=== PATIENT | female | born 1995 | race American Indian/Alaskan Native ===

== ENCOUNTER 2016-06-13 12:25 | Emergency (ER) | payer SELFPAY ==
[2016-06-13] MEDS ORDERED: TYLENOL #3 PO ONE (18:31)
--- NOTE | 2016-06-13 18:40 | Emergency Department Report ---
- General Chief Complaint: Upper Respiratory Infection Stated Complaint: SOB/CHEST PAIN WHEN COUGHING Time Seen by Provider: 06/13/16 18:30 Source: patient Mode of arrival: Ambulatory Limitations: No Limitations - History of Present Illness Initial Comments: Patient with history of asthma and bronchitis complains of nonproductive-dry cough worse at night, chest tightness, sore throat 2 days. Reports runny nose, throat and chest hurts when she coughs. Denies spitting or coughing up blood, weakness, dizziness, N/V, vomiting or abdominal discomfort, ear ache or discomfort, symptoms. LMP 06/04/16 - Related Data Previous Rx's Medication Instructions Recorded Last Taken Type Hydrocortisone 2.5% [Hytone 2.5% 1 applicatio TP BID #30 gm 09/13/14 Unknown Rx CREAM] predniSONE [Deltasone] 20 mg PO BID #10 tab 09/13/14 Unknown Rx ALBUTEROL Inhaler [ProAir HFA 2 puff IH QID PRN #1 inhalation 06/13/16 Unknown Rx Inhaler] Azithromycin [Zithromax] 250 mg PO QDAY #6 tablet 06/13/16 Unknown Rx guaiFENesin/DEXTROMETHORPHAN 10 ml PO Q4HR PRN #118 ml 06/13/16 Unknown Rx [Diabetic Tussin Dm Max-Str Liq] Allergies Allergy/AdvReac Type Severity Reaction Status Date / Time No Known Allergies Allergy Verified 06/13/16 14:32 ED Review of Systems ROS: Stated complaint: SOB/CHEST PAIN WHEN COUGHING Other details as noted in HPI ED Past Medical Hx - Social History Smoking Status: Never Smoker Substance Use Type: None - Medications Home Medications: Home Medications Medication Instructions Recorded Confirmed Last Taken Type Hydrocortisone 2.5% [Hytone 2.5% 1 applicatio TP BID #30 gm 09/13/14 Unknown Rx CREAM] predniSONE [Deltasone] 20 mg PO BID #10 tab 09/13/14 Unknown Rx ALBUTEROL Inhaler [ProAir HFA 2 puff IH QID PRN #1 inhalation 06/13/16 Unknown Rx Inhaler] Azithromycin [Zithromax] 250 mg PO QDAY #6 tablet 06/13/16 Unknown Rx guaiFENesin/DEXTROMETHORPHAN 10 ml PO Q4HR PRN #118 ml 06/13/16 Unknown Rx [Diabetic Tussin Dm Max-Str Liq] ED Physical Exam - General Limitations: No Limitations General appearance: alert, in no apparent distress - Head Head exam: Present: atraumatic, normocephalic - Eye Eye exam: Present: normal appearance, PERRL, EOMI - ENT ENT exam: Present: normal exam, normal orophraynx, mucous membranes moist, TM's normal bilaterally, normal external ear exam - Neck Neck exam: Present: normal inspection, meningismus, full ROM. Absent: tenderness, lymphadenopathy - Respiratory Respiratory exam: Present: normal lung sounds bilaterally, wheezes (mild b/l). Absent: respiratory distress, rales, rhonchi, stridor, chest wall tenderness, accessory muscle use, decreased breath sounds, prolonged expiratory - Cardiovascular Cardiovascular Exam: Present: regular rate, normal rhythm - GI/Abdominal GI/Abdominal exam: Present: soft, normal bowel sounds. Absent: distended, tenderness, guarding, rebound, organomegaly - Extremities Exam Extremities exam: Present: normal inspection, full ROM, normal capillary refill. Absent: tenderness, pedal edema, joint swelling, calf tenderness - Back Exam Back exam: Present: normal inspection, full ROM. Absent: tenderness, CVA tenderness (R), CVA tenderness (L) - Neurological Exam Neurological exam: Present: alert, oriented X3, normal gait. Absent: motor sensory deficit, reflexes normal - Psychiatric Psychiatric exam: Present: normal affect, normal mood - Skin Skin exam: Present: warm, dry, intact, normal color. Absent: rash, cyanosis, diaphoretic, erythema, petechiae, pallor ED Course Vital Signs 06/13/16 14:26 Temperature 99.7 F H Pulse Rate 62 Respiratory 18 Rate Blood Pressure 118/83 O2 Sat by Pulse 99 Oximetry Critical care attestation.: If time is entered above; I have spent that time in minutes in the direct care of this critically ill patient, excluding procedure time. ED Disposition Clinical Impression: Asthma with bronchitis Disposition: DISCHARGED TO HOME OR SELFCARE Is pt being admited?: No Does the pt Need Aspirin: No Condition: Stable Instructions: Chronic Bronchitis (ED), Asthma (ED) Additional Instructions: Follow-up instructions for care. His medications as prescribed. Follow-up with your PCP, Dr. Adhikari, for follow up. Return to ED for new or worsening condition. Prescriptions: guaiFENesin/DEXTROMETHORPHAN [Diabetic Tussin Dm Max-Str Liq] 10 ml PO Q4HR PRN #118 ml PRN Reason: Cough ALBUTEROL Inhaler [ProAir HFA Inhaler] 2 puff IH QID PRN #1 inhalation PRN Reason: Shortness Of Breath Azithromycin [Zithromax] 250 mg PO QDAY #6 tablet Referrals: PRIMARY CARE, [Primary Care Provider] - 24 Hours
[2016-06-13] MEDS ORDERED: DUONEB 0.5 MG-3 MG/3 ML SOLN IH ONE (18:41)
[2016-06-13 18:55] VITALS: BP 116/64
== END 2016-06-13 19:32 | disposition home or self-care (01) ==
LOC: ED 12:25
DX: J45.909 Unspecified asthma, uncomplicated (principal); J40 Bronchitis, not specified as acute or chronic
CPT/HCPCS: 94640